=== PATIENT | female | born 1985 | race Caucasian/White ===

== ENCOUNTER 2024-04-08 16:23 | Emergency (ER) | payer MEDICAID ==
[~2024-04-08] VITALS: Ht 160 cm; Wt 78.0 kg
[2024-04-08 16:27] VITALS: BP 127/77; PULSE 110; RESP 16; TEMP 99.2; O2SAT 97
== END 2024-04-08 16:46 ==
LOC: MED 16:23 → EDSEX 16:23 → MED 16:46
DX: Z32.02 Encounter for pregnancy test, result negative (principal)
CPT/HCPCS: 81025; 99283